=== PATIENT | male | born 1960 | race Caucasian/White ===

== ENCOUNTER 2022-02-08 16:44 | Emergency (ER) | payer BC, OTHER ==
[2022-02-08 17:13] VITALS: BP 151/81; PULSE 68
== END 2022-02-08 17:40 | disposition home or self-care (01) ==
LOC: VM.ED 16:44
DX: J01.10 Acute frontal sinusitis, unspecified (principal); J32.9 Chronic sinusitis, unspecified; Z20.822 Contact with and (suspected) exposure to COVID-19
CPT/HCPCS: 99283; 99284; U0002